=== PATIENT | female | born 1975 | race Hispanic/Latino ===

== ENCOUNTER 2017-09-10 07:35 | Emergency (ER) | payer OTHER ==
[2017-09-10] MEDS ORDERED: Adacel (T-DAP) 0.5 ML VIAL ONE (07:49)
--- NOTE | 2017-09-10 08:20 | CT ---
CT BRAIN WITHOUT CONTRAST: History: Trauma. Comparison: None. FINDINGS: No hemorrhage. No acute infarction. No midline shift of mass effect. Calvarium is intact. Soft tissues are unremarkable. IMPRESSION: No acute intracranial abnormality. POS: [facility]
[2017-09-10] MEDS ORDERED: Lidocaine 1% w/Epinephrine 1:100K 20 ML VIAL ONE (08:25)
--- NOTE | 2017-09-10 08:28 | CT ---
CT FACE: History: Trauma. Comparison: None. FINDINGS: No acute fracture of the face. The orbital ann, lateral orbit ann, orbits roofs, orbital floors a re intact. Paranasal sinuses and mastoids are clear. The pterygoid plates are intact. Mandible is intact. Upper cervical spine alignment is normal. IMPRESSION: No acute fracture of the face. POS: [facility]
[2017-09-10] MEDS ORDERED: Bacitracin Zinc 1 Packet ONE (08:55)
== END 2017-09-10 09:00 | disposition home or self-care (01) ==
LOC: EEVIPCON 07:35 → ERS 07:35
DX: S01.111A Laceration without foreign body of right eyelid and periocular area, initial encounter (principal); R55 Syncope and collapse; Z23 Encounter for immunization; W19.XXXA Unspecified fall, initial encounter
CPT/HCPCS: 12011; 36416; 70450; 70486; 90471; 90715; 93005; J2001